=== PATIENT | male | born 1945 | race African-American/Black ===

== ENCOUNTER 2019-10-27 | Inpatient (IN) | payer OTHER ==
--- NOTE | 2019-10-27 01:10 | PDOC ---
Attending Attestation - Resident Resident Name: Karel Patel - ED Attending Attestation I have performed the following: I have examined & evaluated the patient, The case was reviewed & discussed with the resident, I agree w/resident's findings & plan - HPI HPI: 10/27/19 04:42 see resident hpi - Physicial Exam PE: 10/27/19 04:42 see resident exam - Medical Decision Making 10/27/19 04:43 74-year-old male status post cystoscopy currently on Eliquis with gross hematuria We will admit to medical service for observation Patient is passing urine at this time, a Roche catheter would pose greater potential harm than benefit due to anticoagulation Patient's urologist contacted though he is not on staff at this facility
--- NOTE | 2019-10-27 01:50 | PDOC ---
History of Present Illness - General Chief Complaint: Hematuria Stated Complaint: BLEEDING Time Seen by Provider: 10/27/19 01:09 History Source: Patient Exam Limitations: No Limitations - History of Present Illness Initial Comments: 10/27/19 04:12 74 yo M with a hx of afib (on eliquis), DM, BPH, HLD, polymyositis, and HTN presents to the emergency department for the evaluation of his hematuria that has been ongoing since yesterday afternoon s/p cystoscopy. Per the patient, he had a cystoscopy performed by Dr. Herrera. Per the patient, he has had 6+ urination episodes with marcelino blood. Per the patient, he has had difficulty urinating with interruptions of urine stream. Denies pain with these episodes, but describes a pressure in the suprapubic region. Denies the following: fever, chills, nausea, vomiting, lightheadedness, chest pain, SOB, ears/nose/throat pain, and leg pain/swelling. Allergies: NKDA Past History - Past Medical History Allergies/Adverse Reactions: Allergies Allergy/AdvReac Type Severity Reaction Status Date / Time No Known Allergies Allergy Verified 10/27/19 01:09 Home Medications: Ambulatory Orders Apixaban [Eliquis] 5 mg PO DAILY 10/27/19 Aspirin [Ecotrin] 81 mg PO DAILY 10/27/19 Atorvastatin Ca [Lipitor] 10 mg PO HS 10/27/19 B12/Iodin/Mag/Zinc/Annette/Tlst506 [Adrenoid Capsule] 1 each PO DAILY 10/27/19 Folic Acid/Vit B Complex and C [Dialyvite 800 Chewable Wafer] 800 mcg PO DAILY 10/27/19 Losartan Potassium 100 mg PO DAILY 10/27/19 Methotrexate Sodium/Pf [Methotrexate 1 gm Vial] 1 gm IJ WEEKLY 10/27/19 Multivit-Min/FA/Lycopen/Lutein [Centrum Silver Tablet] 1 each PO DAILY 10/27/19 Triamterene/Hydrochlorothiazid [Triamterene-Hctz 75-50 mg Tab] 1 each PO DAILY 10/27/19 metFORMIN HCL [Metformin HCl ER] 750 mg PO DAILY 10/27/19 - Psycho Social/Smoking Cessation Hx Smoking History: Never smoked Hx Alcohol Use: No Drug/Substance Use Hx: No Review of Systems - Review of Systems Able to Perform ROS?: Yes Is the patient limited Fijian proficient: No Constitutional: No: Chills, Diaphoresis, Fever, Weakness HEENTM: No: Eye Pain, Ear Pain, Nose Pain, Throat Pain, Mouth Pain Respiratory: No: Cough, Shortness of Breath, Hemoptysis Cardiac (ROS): No: Chest Pain, Lightheadedness, Palpitations, Syncope, Chest Tightness ABD/GI: No: Constipated, Diarrhea, Nausea, Rectal Bleeding, Vomiting, Tarry Stools : Yes: Hematuria. No: Burning, Dysuria, Discharge, Incontinence Musculoskeletal: No: Back Pain, Joint Pain, Neck Pain Integumentary: No: Bruising, Erythema, Rash Neurological: No: Headache Psychiatric: No: Change in Appetite Endocrine: No: Unexplained Weight Loss Hematologic/Lymphatic: No: Anemia *Physical Exam - Vital Signs Last Vital Signs Temp Pulse Resp BP Pulse Ox 98.3 F 67 16 116/72 100 10/27/19 00:00 10/27/19 00:00 10/27/19 00:00 10/27/19 00:00 10/27/19 00:00 - Physical Exam General Appearance: Yes: Nourished, Appropriately Dressed. No: Apparent Distress, Intoxicated HEENT: positive: EOMI, DONAL, Normal Voice, Symmetrical, Pharynx Normal, Hearing Grossly Normal. negative: Pale Conjunctivae, Scleral Icterus (R), Scleral Icterus (L), Muffled/Hoarse voice, Pharyngeal Erythema, Tonsillar Exudate, Tonsillar Erythema, Nasal Congestion, Rhinorrhea, Excessive drooling Neck: positive: Trachea midline, Supple. negative: Tender, Lymphadenopathy (R) , Lymphadenopathy (L), Tender lateral, Tender midline Respiratory/Chest: positive: Lungs Clear, Normal Breath Sounds. negative: Chest Tender, Respiratory Distress, Accessory Muscle Use, Rales, Rhonchi, Stridor, Wheezing Cardiovascular: positive: Regular Rhythm, Regular Rate, S1, S2. negative: Systolic Murmur Gastrointestinal/Abdominal: positive: Normal Bowel Sounds, Tender (suprapubic discomfort on palpation), Flat, Soft. negative: Distended, Guarding, Rebound Lymphatic: negative: Adenopathy Musculoskeletal: positive: Normal Inspection. negative: CVA Tenderness, Vertebral Tenderness Extremity: positive: Normal Capillary Refill, Normal Inspection, Normal Range of Motion. negative: Tender Integumentary: positive: Normal Color, Dry, Warm Neurologic: positive: superintendent local II-XII NML intact, Fully Oriented, Alert, Normal Mood/ Affect, Normal Response, Motor Strength 01/31 ED Treatment Course - LABORATORY CBC & Chemistry Diagram: 10/27/19 14:07 10/27/19 08:33 Medical Decision Making - Medical Decision Making 10/27/19 18:23 74 yo M with a hx of afib (on eliquis), DM, BPH, HLD, polymyositis, and HTN presents to the emergency department for the evaluation of his hematuria that has been ongoing since yesterday afternoon s/p cystoscopy. Initial vitals: Initial Vital Signs Temp Pulse Resp BP Pulse Ox 98.3 F 67 16 116/72 100 10/27/19 00:00 10/27/19 00:00 10/27/19 00:00 10/27/19 00:00 10/27/19 00:00 Work up: Patient received a cystoscopy from his urologist at 9am. The patient withheld his eliquis the night prior to the procedure, but took his usual dose shortly after the procedure. The patient presented images on his phone of the episodes he has had. By my evaluation, it appears to be blood without a sero-sanguineous component. The patient will need to have hemoglobin evaluated. Per the patient, he is still urinating, however with reduced stream strength. Laboratory Tests 10/27/19 10/27/19 10/27/19 02:50 02:50 02:50 WBC 7.5 RBC 3.35 L Hgb 11.5 L Hct 33.3 L MCV 99.2 H MCH 34.4 H MCHC 34.7 RDW 14.6 Plt Count 128 L MPV 11.0 Absolute Neuts (auto) 6.1 Neutrophils % 81.2 Lymphocytes % 14.8 Monocytes % 3.4 L Eosinophils % 0.1 Basophils % 0.5 Nucleated RBC % 0 PT with INR 16.60 H INR 1.40 H Sodium 139 Potassium 5.0 Chloride 106 Carbon Dioxide 28 Anion Gap 6 L BUN 25.7 H Creatinine 1.3 Est GFR (CKD-EPI)AfAm 63.18 Est GFR (CKD-EPI)NonAf 54.51 Random Glucose 150 H Calcium 10.5 H Total Bilirubin 1.4 H AST 37 ALT 30 Alkaline Phosphatase 91 Total Protein 6.5 Albumin 3.8 Blood Type Antibody Screen 10/27/19 02:50 WBC RBC Hgb Hct MCV MCH MCHC RDW Plt Count MPV Absolute Neuts (auto) Neutrophils % Lymphocytes % Monocytes % Eosinophils % Basophils % Nucleated RBC % PT with INR INR Sodium Potassium Chloride Carbon Dioxide Anion Gap BUN Creatinine Est GFR (CKD-EPI)AfAm Est GFR (CKD-EPI)NonAf Random Glucose Calcium Total Bilirubin AST ALT Alkaline Phosphatase Total Protein Albumin Blood Type O POSITIVE Antibody Screen Negative baseline hemoglobin per the patient is 12.5. 1 point drop from his baseline which was recently drawn. Patient to be admitted for significant hematuria with laboratory changes and continues bleeding without sero-sanguinous development. Patient's urologist was called and i spoke to the sectional belt mold assembler urologist for his service. recommended withholding anti-coagulation and at least observing for 24 hours to watch for clear urine. Patient was endorsed to hospital team and accepted for admission Dispo: Admit Discharge - Discharge Information Problems reviewed: Yes Clinical Impression/Diagnosis: Hematuria - Follow up/Referral - Patient Discharge Instructions - Post Discharge Activity
[2019-10-27 03:22] LABS: BASO % 0.5 % (0-2.0); EOS % 0.1 % (0-4.5); HEMATOCRIT 33.3 % (35.4-49); HEMOGLOBIN 11.5 GM/dL (11.7-16.9); LYMPH % 14.8 % (8-40); MCH 34.4 pg (25.7-33.7); MCHC 34.7 g/dl (32.0-35.9); MEAN CELL VOLUME 99.2 fl (80-96); MONO % 3.4 % (3.8-10.2); NEUT % 81.2 % (42.8-82.8); PLATELET COUNT 128 K/MM3 (134-434); RBC 3.35 M/mm3 (4.00-5.60); RDW 14.6 % (11.9-15.9); WHITE BLOOD COUNT 7.5 K/mm3 (4.0-10.0)
[2019-10-27 03:39] LABS: INR 1.4 (0.83-1.09); PROTHROMBIN TIME (PATIENT) 16.6 SEC (9.7-13.0)
[2019-10-27 03:58] LABS: ALBUMIN 3.8 g/dl (3.4-5.0); BILIRUBIN,TOTAL 1.4 mg/dL (0.2-1); BLOOD UREA NITROGEN 25.7 mg/dL (7-18); CALCIUM 10.5 mg/dL (8.5-10.1); CREATININE 1.3 mg/dL (0.55-1.3); TOT PROT 6.5 g/dl (6.4-8.2)
[2019-10-27] MEDS ORDERED: CEFTRIAXONE 1,000 MG in DEXTROSE 5%-WATER - 50 ML IVPB ONE (04:30)
[2019-10-27] MEDS ORDERED: CEFTRIAXONE 1 GM/50 ML BAG ONE (04:43)
--- NOTE | 2019-10-27 04:58 | PN ---
Teaching Attending Note Name of Resident: Jas Steele ATTENDING PHYSICIAN STATEMENT I saw and evaluated the patient. I reviewed the resident's note and discussed the case with the resident. I agree with the resident's findings and plan as documented. SUBJECTIVE: 74 yo M with a hx of afib (on eliquis), DM, BPH, HLD, polymyositis, htn presents for evaluation of hematuria that are started on 10/26/2019 in the afternoon after he underwent a cystoscopy. Per the patient he had a cystoscopy performed and subsequently developed multiple episodes of urination with marcelino blood. Reported some hesitancy, urination is painless. First time in this hospital. OBJECTIVE: Last Vital Signs Temp Pulse Resp BP Pulse Ox 98.3 F 67 16 116/72 100 10/27/19 00:00 10/27/19 00:00 10/27/19 00:00 10/27/19 00:00 10/27/19 00:00 GENERAL: Well developed, well nourished. Awake and alert. No acute distress. HEENT: Normocephalic, atraumatic. PERRLA, EOMI. No conjunctival pallor. Sclera are non- icteric. Moist mucous membranes. Oropharynx is clear. NECK: Supple. Full ROM. No JVD. Carotid pulses 2+ and symmetric, without bruits. No thyromegaly. No lymphadenopathy. CARDIOVASCULAR: Regular rate and rhythm. No murmurs, rubs, or gallops. Distal pulses are 2+ and symmetric. PULMONARY: No evidence of respiratory distress. Lungs clear to auscultation bilaterally. No wheezing, rales or rhonchi. ABDOMINAL: Soft. Non-tender. Non-distended. No rebound or guarding. No organomegaly. Normoactive bowel sounds. MUSCULOSKELETAL Normal range of motion at all joints. No bony deformities or tenderness. No CVA tenderness. EXTREMITIES: No cyanosis. No clubbing. No edema. No calf tenderness. SKIN: Warm and dry. Normal capillary refill. No rashes. No jaundice. PSYCHIATRIC: Cooperative. Good eye contact. Appropriate mood and affect. Abnormal Lab Results 10/27/19 10/27/19 10/27/19 02:50 02:50 02:50 RBC 3.35 L Hgb 11.5 L Hct 33.3 L MCV 99.2 H MCH 34.4 H Plt Count 128 L Monocytes % 3.4 L PT with INR 16.60 H INR 1.40 H Anion Gap 6 L BUN 25.7 H Random Glucose 150 H Calcium 10.5 H Total Bilirubin 1.4 H ASSESSMENT AND PLAN: 74-year-old male with hematuria status post cystoscopy. Eliquis might facilitate bleeding. Patient is hemodynamically stable, hemoglobin of 11 g/dL, dropped from baseline of 12 g/dLShould rule out post procedure complications. [facility] Stop Eliquis at this time EKG Urology consult CT of abdomen and pelvis #Thrombocytopenia #Macrocytic anemia Send iron studies, ferritin, vitamin B12, TSH
--- NOTE | 2019-10-27 05:24 | HP ---
CHIEF COMPLAINT: Gross hematuria s/p since yesterday PCP: Dr. Pugh HISTORY OF PRESENT ILLNESS: This is a 74 year old male with PMH of AFib (diagnosed 2017, started on Eliquis 5mg BID), DM, BPH, HLD, HTN, and polymyositis. He presented to the ER with complaints of over 10 episodes of painless gross hematuria with clots since Oct 25 (2 days ago) after undergoing a cystoscopy a few hours before his symptoms began. He endorses associated polyuria, but denies any fevers, chills, diarrhea , nausea, vomiting, melena, easy bruising, SOB, chest pain, or palpitations. He also endorses an unintentional weight loss of approximately 60 lbs over the past 2 years, although he states that no evidence of cancer was found during his cystoscopy. In February 2019, he experienced a few episodes of hematuria, only a few drops noticed in his stream. Around the same time, he developed bruising on his right arm and left thigh. His Eliquis was stopped for a few days as per PCP. His hematuria resolved within a few days, and his Eliquis was restarted. He was referred by his PCP for CT scan a few weeks later, the patient does not remember the findings of the scan. He attributes the 7 month delay between his initial symptoms and scheduling of cystoscopy to the fact that he was unable to find a urologist of his liking. He has never had similar symptoms before, and denies sick contacts, recent illnesses, or recent travel. His DM is well controlled with Metformin 750mg, he takes Tamsulosin intermittently for his BPH, and has weekly injections of Methotrexate for his polymyositis. He underwent a colonoscopy 2 years ago with no abnormalities. He is scheduled for another one in November because he has been cnstipated for the past several months. ER course was notable for: (1) Dr. Herrera contacted: recommended starting on 1g Ceftriaxone (2) H/H 11.5/33.3 (3) T Bili 1.4 Recent Travel: denies PAST MEDICAL HISTORY: As listed in HPI PAST SURGICAL HISTORY: denies Social History: Smoking: quit in the 70s Alcohol: socially, few drinks a month, no binge drinking Drugs: denies Allergies No Known Allergies Allergy (Verified 10/27/19 01:09) HOME MEDICATIONS: Home Medications Medication Instructions Recorded Losartan Potassium 100 mg PO DAILY 10/27/19 REVIEW OF SYSTEMS CONSTITUTIONAL: Absent: fever, chills, diaphoresis, generalized weakness, malaise, loss of appetite, weight change HEENT: Absent: rhinorrhea, nasal congestion, throat pain, throat swelling, difficulty swallowing, mouth swelling, ear pain, eye pain, visual changes CARDIOVASCULAR: Absent: chest pain, syncope, palpitations, irregular heart rate, lightheadedness , peripheral edema RESPIRATORY: Absent: cough, shortness of breath, dyspnea with exertion, orthopnea, wheezing, stridor, hemoptysis GASTROINTESTINAL: Absent: abdominal pain, abdominal distension, nausea, vomiting, diarrhea, constipation, melena, hematochezia GENITOURINARY: Absent: dysuria, frequency, urgency, hesitancy, hematuria, flank pain, genital pain MUSCULOSKELETAL: Absent: myalgia, arthralgia, joint swelling, back pain, neck pain SKIN: Absent: rash, itching, pallor HEMATOLOGIC/IMMUNOLOGIC: Absent: easy bleeding, easy bruising, lymphadenopathy, frequent infections ENDOCRINE: Absent: unexplained weight gain, unexplained weight loss, heat intolerance, cold intolerance NEUROLOGIC: Absent: headache, focal weakness or paresthesias, dizziness, unsteady gait, seizure, mental status changes, bladder or bowel incontinence PSYCHIATRIC: Absent: anxiety, depression, suicidal or homicidal ideation, hallucinations. PHYSICAL EXAMINATION Vital Signs - 24 hr 10/27/19 00:00 Temperature 98.3 F Pulse Rate 67 Respiratory 16 Rate Blood Pressure 116/72 O2 Sat by Pulse 100 Oximetry (%) GENERAL: AOx3 HEAD: Normal with no signs of trauma. EYES: Pupils equal, round and reactive to light, extraocular movements intact, sclera anicteric, conjunctiva clear. No lid lag. EARS, NOSE, THROAT: Ears normal, nares patent, oropharynx clear without exudates. Moist mucous membranes. NECK: Normal range of motion, supple without lymphadenopathy, JVD, or masses. LUNGS: Breath sounds equal, clear to auscultation bilaterally. No wheezes, and no crackles. No accessory muscle use. HEART: Regular rate and rhythm, normal S1 and S2 without murmur, rub or gallop. ABDOMEN: Soft, mild suprapubic tenderness, no active bleeding or lesions at penile meatus MUSCULOSKELETAL: Normal range of motion at all joints. No bony deformities or tenderness. No CVA tenderness. UPPER EXTREMITIES: 2+ pulses, warm, well-perfused. No cyanosis. No clubbing. No peripheral edema. LOWER EXTREMITIES: 2+ pulses, warm, well-perfused. No calf tenderness. No peripheral edema. NEUROLOGICAL: Cranial nerves II-XII intact. Normal speech PSYCHIATRIC: Cooperative. Good eye contact. Appropriate mood and affect. SKIN: Warm, dry, normal turgor, no rashes or lesions noted, normal capillary refill. Laboratory Results - last 24 hr 10/27/19 10/27/19 10/27/19 02:50 02:50 02:50 WBC 7.5 RBC 3.35 L Hgb 11.5 L Hct 33.3 L MCV 99.2 H MCH 34.4 H MCHC 34.7 RDW 14.6 Plt Count 128 L MPV 11.0 Absolute Neuts (auto) 6.1 Neutrophils % 81.2 Lymphocytes % 14.8 Monocytes % 3.4 L Eosinophils % 0.1 Basophils % 0.5 Nucleated RBC % 0 PT with INR 16.60 H INR 1.40 H Sodium 139 Potassium 5.0 Chloride 106 Carbon Dioxide 28 Anion Gap 6 L BUN 25.7 H Creatinine 1.3 Est GFR (CKD-EPI)AfAm 63.18 Est GFR (CKD-EPI)NonAf 54.51 Random Glucose 150 H Calcium 10.5 H Total Bilirubin 1.4 H AST 37 ALT 30 Alkaline Phosphatase 91 Total Protein 6.5 Albumin 3.8 Blood Type Antibody Screen 10/27/19 02:50 WBC RBC Hgb Hct MCV MCH MCHC RDW Plt Count MPV Absolute Neuts (auto) Neutrophils % Lymphocytes % Monocytes % Eosinophils % Basophils % Nucleated RBC % PT with INR INR Sodium Potassium Chloride Carbon Dioxide Anion Gap BUN Creatinine Est GFR (CKD-EPI)AfAm Est GFR (CKD-EPI)NonAf Random Glucose Calcium Total Bilirubin AST ALT Alkaline Phosphatase Total Protein Albumin Blood Type O POSITIVE Antibody Screen Negative ASSESSMENT/PLAN: 74 year old male with PMH of AFib (diagnosed 2018, started on Eliquis 5mg BID), DM, BPH, HLD, HTN, and polymyositis. He presented to the ER with complaints of over 10 episodes of painless gross hematuria with clots since Oct 25 (2 days ago ) after undergoing a cystoscopy a few hours before his symptoms began. #Hematuria - May be trauma, patient has pictures of the urine on his phone, appears to be a profuse amount of dark blood - Ceftriaxone 1g started as per Dr. Herrera (Urologist who performed cystoscopy) - CT AP wo contrast ordered to check for trauma - Holding Eliquis - Urology (Dr. 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 - Eliquis stopped due to active bleeding #Hx of HTN - Holding Losartan and Triamterene-Hctz to avoid hypotension in setting of possible hypovolemia 2/2 blood loss #Hx of DM - BGM, ISS started #Hx of BPH - Currently asymptomatic - May start Tamsuosin 0.4mg if symptoms occurs #FEN - LR @ 100 started - NPO for now (in case procedure required) #DVT - SCDs, holding chemical AC Visit type - Emergency Visit Emergency Visit: Yes ED Registration Date: 10/27/19 Care time: The patient presented to the Emergency Department on the above date and was hospitalized for further evaluation of their emergent condition. - New Patient This patient is new to me today: Yes Date on this admission: 10/28/19 - Critical Care Critical Care patient: No ATTENDING PHYSICIAN STATEMENT I saw and evaluated the patient. I reviewed the resident's note and discussed the case with the resident. I agree with the resident's findings and plan as documented. SUBJECTIVE: OBJECTIVE: ASSESSMENT AND PLAN:
[2019-10-27] MEDS ORDERED: LACTATED RINGERS SOLUTION 1,000 ML/1,000 ML INFUS.BAG IV SCH ×2 (06:15→18:13)
--- NOTE | 2019-10-27 08:08 | PN ---
Teaching Attending Note Name of Resident: Blanca Jacob ATTENDING PHYSICIAN STATEMENT I saw and evaluated the patient. I reviewed the resident's note and discussed the case with the resident. I agree with the resident's findings and plan as documented. SUBJECTIVE: Hematuria OBJECTIVE: Vital Signs Temperature 98.3 F 10/27/19 00:00 Pulse Rate 67 10/27/19 00:00 Respiratory Rate 16 10/27/19 00:00 Blood Pressure 116/72 10/27/19 00:00 O2 Sat by Pulse Oximetry (%) 100 10/27/19 00:00 General: Elderly man, comfortable, not in distress HEENT; mucous membranes moist, no anemia, no jaundice, PERRLA, no nystagmus Neck: No JVD, supple, no bruit, thyroid palpably normal, normal carotid pulsations. Chest: Nontender, clear to auscultation bilaterally CVS: S1-S2 regular no murmur/gallop/rub Abdomen: Nondistended, soft, bowel sounds present. Extremities: No edema., No cough tenderness, pulses present FLIGHT ATTENDANT: AO X3 , no gross motor sensory deficit CBC, BMP 10/27/19 02:50 10/27/19 02:50 Active Medications Lactated Ringer's (Lactated Ringers Solution) 1,000 ml in 1,000 mls @ 100 mls/ hr IV ASDIR MAYA Last Admin: 10/27/19 07:14 Dose: 100 mls/hr Insulin Aspart (Novolog Vial) 1 units SQ [facility]; Protocol ASSESSMENT AND PLAN:74 years old man lives in the [place] follow-up in [place] history of hypertension, A. fib on Eliquis, type 2 diabetes mellitus, hypertension, BPH as per patient yesterday around 8 AM he underwent cystoscopy as an outpatient resumed his apixaban [patient was not advised to stop s apixaban for the procedure] presents for evaluation of hematuria that are started on 10/26/2019 in the afternoon after he underwent a cystoscopy. Late evening patient developed marcelino hematuria with some frequency of micturition, he called his urologist and came to ED for evaluation on arrival to ED patient was having marcelino hematuria admitted for further management, patient still complaint of hematuria denies any dizziness chest pain or urinary obstruction. Problem List - Problems (1) Hematuria Assessment/Plan: Post cystoscopy hematuria, continue IV hydration, serial H&H, follow-up CT abdomen, serial bladder scan to rule out bladder outlet obstruction, urology consult, patient urologist by the resident. Problems reviewed: Yes Code(s): R31.9 - HEMATURIA, UNSPECIFIED (2) Type 2 diabetes mellitus Assessment/Plan: Diabetic diet, continue Accu-Chek follow-up hemoglobin A1c Problems reviewed: Yes Code(s): E11.9 - TYPE 2 DIABETES MELLITUS WITHOUT COMPLICATIONS (3) Atrial fibrillation Assessment/Plan: Hold anticoagulation, at present rate controlled Problems reviewed: Yes Code(s): I48.91 - UNSPECIFIED ATRIAL FIBRILLATION (4) HTN (hypertension) Assessment/Plan: At present blood pressure is well controlled Problems reviewed: Yes Code(s): I10 - ESSENTIAL (PRIMARY) HYPERTENSION
[2019-10-27 08:55] LABS: HEMATOCRIT 33.3 % (35.4-49); HEMOGLOBIN 11.5 GM/dL (11.7-16.9); MCH 34.1 pg (25.7-33.7); MCHC 34.6 g/dl (32.0-35.9); MEAN CELL VOLUME 98.4 fl (80-96); MEAN PLT VOLUME 10.1 fl (7.5-11.1); PLATELET COUNT 125 K/MM3 (134-434); RBC 3.39 M/mm3 (4.00-5.60); RDW 14.6 % (11.9-15.9); WHITE BLOOD COUNT 8.2 K/mm3 (4.0-10.0)
[2019-10-27 09:42] LABS: BLOOD UREA NITROGEN 26.5 mg/dL (7-18); CALCIUM 10.3 mg/dL (8.5-10.1); CREATININE 1.2 mg/dL (0.55-1.3); POTASSIUM 3.5 mmol/L (3.5-5.1)
[2019-10-27 09:43] LABS: BILIRUBIN,TOTAL 1.6 mg/dL (0.2-1); TOT PROT 6.5 g/dl (6.4-8.2)
[2019-10-27] MEDS ORDERED: PATIENT'S OWN MEDICATION (NON-FORMULARY) (Losartan Potassium [Losartan Potassium] 100 MG) PO SCH (10:00)
[2019-10-27] MEDS ORDERED: PATIENT'S OWN MEDICATION (NON-FORMULARY) (Triamterene/Hydrochlorothiazid [Triamterene-Hctz PO SCH (10:00)
[2019-10-27] MEDS: INSULIN (NOVOLOG) ASPART 100 UNITS/ML 10ML VIAL SQ SCH ×4 (10:21→21:50)
--- NOTE | 2019-10-27 11:00 | EKG ---
Test Reason : Blood Pressure : / mmHG Vent. Rate : 060 BPM Atrial Rate : 060 BPM P-R Int : 158 ms QRS Dur : 116 ms QT Int : 440 ms P-R-T Axes : 052 -30 039 degrees QTc Int : 440 ms NORMAL SINUS RHYTHM LEFT AXIS DEVIATION ABNORMAL ECG NO PREVIOUS ECGS AVAILABLE Confirmed by Adam Oswald MD ([id number]) on 10/27/2019 11:00:15 AM Referred By: Confirmed By:Adam Oswald MD
[2019-10-27 14:34] LABS: BASO % 0.4 % (0-2.0); EOS % 0.1 % (0-4.5); HEMATOCRIT 30.9 % (35.4-49); HEMOGLOBIN 10.7 GM/dL (11.7-16.9); LYMPH % 19.7 % (8-40); MCHC 34.6 g/dl (32.0-35.9); MEAN CELL VOLUME 98.5 fl (80-96); MEAN PLT VOLUME 10.4 fl (7.5-11.1); MONO % 4.7 % (3.8-10.2); NEUT % 75.1 % (42.8-82.8); PLATELET COUNT 123 K/MM3 (134-434); RBC 3.14 M/mm3 (4.00-5.60); RDW 14.7 % (11.9-15.9); WHITE BLOOD COUNT 8.1 K/mm3 (4.0-10.0)
[2019-10-27 15:13] VITALS: BMI 26.9
--- NOTE | 2019-10-27 15:19 | CONS ---
DATE OF CONSULTATION: DATE OF DICTATION: 10/27/2019 HISTORY OF PRESENT ILLNESS: Patient is a 74-year-old male, admitted via the emergency room, with gross total-painless hematuria. This has been going on for the past 36 hours, since he underwent a cystoscopy performed by a Dr. Herrera in [facility]. Patient does have history of diabetes, high blood pressure, prostatism, dyslipidemia, polymyositis, and hypertension. He is on Eliquis. The patient also has frequency, urgency with interruption of stream and feelings of incomplete bladder emptying. ALLERGIES: He denies any allergies. HABITS: He denies ethanol or tobacco use. In the emergency room, his temperature was 98.3, blood pressure 116/72. His white count is 7.5, hemoglobin and hematocrit is 11.5 over 33.3, platelets were 128, BUN and creatinine were 25.7 over 1.3. The patient underwent a CT of his abdomen and pelvis and this revealed a 1-cm left basilar nodule. CT followup is recommended. There was no evidence of obstructive uropathy. There was hyperdense, echogenic material within the urinary bladder, most likely clots, but neoplasm must be ruled out. There is a moderately enlarged prostate. There was also left adrenal nodularity, for which an MRI followup is recommended. The gallbladder is clear and there is no evidence of diverticulitis or appendicitis. The patient's abdomen is soft. Genitalia are atraumatic. His prostate is 3+, firm, nontender. Plan is patient should stop his anticoagulation and undergo a cystoscopy to rule out bladder tumor. This will be explained to patient. Khushbu [id number]
[2019-10-27] MEDS ORDERED: SODIUM CHLORIDE 1,000 ML IV STA (17:24)
--- NOTE | 2019-10-27 18:13 | PN ---
Physical Exam: SUBJECTIVE: Patient seen and examined. Says he is still having gross hematuria but possibly a little less than yesterday. OBJECTIVE: Vital Signs Period Temp Pulse Resp BP Sys/[place] Pulse Ox Last 24 Hr 97.7 F-98.7 F 65-82 16-20 101-132/59-76 98-100 General: a/o x 3, in NAD HEENT; mucous membranes moist, no anemia, no jaundice, PERRLA, no nystagmus Neck: No JVD, supple, no bruit, thyroid palpably normal, normal carotid pulsations. Chest: CTA b/l CVS: rrr, no MGR, s1 s2 Abdomen: Nondistended, soft, +BS Extremities: No edema. 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 grossly intact Laboratory Results - last 24 hr 10/27/19 10/27/19 10/27/19 02:50 02:50 02:50 WBC 7.5 RBC 3.35 L Hgb 11.5 L Hct 33.3 L MCV 99.2 H MCH 34.4 H MCHC 34.7 RDW 14.6 Plt Count 128 L MPV 11.0 Absolute Neuts (auto) 6.1 Neutrophils % 81.2 Lymphocytes % 14.8 Monocytes % 3.4 L Eosinophils % 0.1 Basophils % 0.5 Nucleated RBC % 0 PT with INR 16.60 H INR 1.40 H Sodium 139 Potassium 5.0 Chloride 106 Carbon Dioxide 28 Anion Gap 6 L BUN 25.7 H Creatinine 1.3 Est GFR (CKD-EPI)AfAm 63.18 Est GFR (CKD-EPI)NonAf 54.51 POC Glucometer Random Glucose 150 H Calcium 10.5 H Iron TIBC Iron Saturation Unsaturated IBC Total Bilirubin 1.4 H AST 37 ALT 30 Alkaline Phosphatase 91 Total Protein 6.5 Albumin 3.8 Vitamin B12 Blood Type Antibody Screen 10/27/19 10/27/19 10/27/19 02:50 08:33 08:33 WBC 8.2 RBC 3.39 L Hgb 11.5 L Hct 33.3 L MCV 98.4 H MCH 34.1 H MCHC 34.6 RDW 14.6 Plt Count 125 L MPV 10.1 Absolute Neuts (auto) Neutrophils % Lymphocytes % Monocytes % Eosinophils % Basophils % Nucleated RBC % PT with INR INR Sodium 139 Potassium 3.5 Chloride 106 Carbon Dioxide 26 Anion Gap 7 L BUN 26.5 H Creatinine 1.2 Est GFR (CKD-EPI)AfAm 69.60 Est GFR (CKD-EPI)NonAf 60.05 POC Glucometer Random Glucose 123 H Calcium 10.3 H Iron 84 TIBC 293 Iron Saturation 28 Unsaturated IBC 209 Total Bilirubin 1.6 H AST 19 ALT 29 Alkaline Phosphatase 86 Total Protein 6.5 Albumin 4.0 Vitamin B12 858 Blood Type O POSITIVE Antibody Screen Negative 10/27/19 10/27/19 10/27/19 08:39 12:11 14:07 WBC 8.1 RBC 3.14 L Hgb 10.7 L Hct 30.9 L MCV 98.5 H MCH 34.0 H MCHC 34.6 RDW 14.7 Plt Count 123 L MPV 10.4 Absolute Neuts (auto) 6.1 Neutrophils % 75.1 Lymphocytes % 19.7 D Monocytes % 4.7 Eosinophils % 0.1 Basophils % 0.4 Nucleated RBC % 0 PT with INR INR Sodium Potassium Chloride Carbon Dioxide Anion Gap BUN Creatinine Est GFR (CKD-EPI)AfAm Est GFR (CKD-EPI)NonAf POC Glucometer 121 108 Random Glucose Calcium Iron TIBC Iron Saturation Unsaturated IBC Total Bilirubin AST ALT Alkaline Phosphatase Total Protein Albumin Vitamin B12 Blood Type Antibody Screen 10/27/19 16:59 WBC RBC Hgb Hct MCV MCH MCHC RDW Plt Count MPV Absolute Neuts (auto) Neutrophils % Lymphocytes % Monocytes % Eosinophils % Basophils % Nucleated RBC % PT with INR INR Sodium Potassium Chloride Carbon Dioxide Anion Gap BUN Creatinine Est GFR (CKD-EPI)AfAm Est GFR (CKD-EPI)NonAf POC Glucometer 101 Random Glucose Calcium Iron TIBC Iron Saturation Unsaturated IBC Total Bilirubin AST ALT Alkaline Phosphatase Total Protein Albumin Vitamin B12 Blood Type Antibody Screen Active Medications Generic Name Dose Route Start Last Admin Trade Name Freq PRN Reason Stop Dose Admin Lactated Ringer's 1,000 ml in 1,000 mls @ 100 mls/hr 10/27/19 06:15 10/27/19 07:14 Lactated Ringers Solution IV 100 mls/hr ASDIR MAYA Administration Sodium Chloride 1,000 mls @ 1,000 mls/hr 10/27/19 17:24 10/27/19 17:45 Normal Saline - IV 10/27/19 18:23 1,000 mls/hr ASDIR STA Administration Insulin Aspart 1 units 10/27/19 07:00 10/27/19 17:27 Novolog Vial SQ Not Given ACHS MAYA Protocol ASSESSMENT/PLAN: #Hematuria -Post cystoscopy hematuria, called patients urologist, says patient did not follow directions pre-cystoscope and took eliquis. -continue IV hydration -serial H&H -follow-up CT abdomen -bladder scan to rule out obstruction -urology consult #Hx of AFib -hold eliquis -Rate control held. patient now hypotensive #Hx of HTN - holding antihypertensives due to hypotension #Hx of DM - BGM, ISS started #Hx of BPH - stable #FEN - LR @ 100 started - diabetic diet #DVT - SCDs, holding chemical AC Visit type - Emergency Visit Emergency Visit: Yes ED Registration Date: 10/27/19 Care time: The patient presented to the Emergency Department on the above date and was hospitalized for further evaluation of their emergent condition. - New Patient This patient is new to me today: Yes Date on this admission: 10/27/19 - Critical Care Critical Care patient: No ATTENDING PHYSICIAN STATEMENT I saw and evaluated the patient. I reviewed the resident's note and discussed the case with the resident. I agree with the resident's findings and plan as documented. SUBJECTIVE: OBJECTIVE: ASSESSMENT AND PLAN:
[2019-10-27 20:07] LABS: BASO % 0.7 % (0-2.0); EOS % 0.8 % (0-4.5); HEMATOCRIT 31.1 % (35.4-49); HEMOGLOBIN 10.8 GM/dL (11.7-16.9); LYMPH % 24.6 % (8-40); MCH 34.3 pg (25.7-33.7); MCHC 34.6 g/dl (32.0-35.9); MEAN CELL VOLUME 99.2 fl (80-96); MEAN PLT VOLUME 10.9 fl (7.5-11.1); MONO % 8.2 % (3.8-10.2); NEUT % 65.7 % (42.8-82.8); PLATELET COUNT 123 K/MM3 (134-434); RBC 3.14 M/mm3 (4.00-5.60); RDW 14.5 % (11.9-15.9); WHITE BLOOD COUNT 9.1 K/mm3 (4.0-10.0)
[2019-10-27 20:22] LABS: PH,URINE 6.5 (5.0-8.0); URINE APPEARANCE Cloudy; URINE BILIRUBIN 3+ (NEGATIVE); URINE COLOR Red; URINE GLUCOSE (UA) Negative (NEGATIVE); URINE KETONE 1+ (NEGATIVE); URINE LEUK ESTERASE 3+ (NEGATIVE); URINE NITRITE Positive (NEGATIVE); URINE PROTEIN 3+ (NEGATIVE)
[2019-10-27 20:23] LABS: URINE RBC TNTC /hpf (0-4)
[2019-10-27 20:24] LABS: URINE WBC 15-20 /hpf (0-5)
--- NOTE | 2019-10-27 20:44 | PN ---
Progress Note (short form) - Note Progress Note: Paged by RN that pt's hematuria worsening. Pt endorses difficulty urinating as well. Irrigated patient's bladder using a [address]. Dark red urine evacuated from bladder. CBI started, working well. Repeat CBC for 10 pm this evening. If count below 7.0, will transfuse. Pt NPO for possible cystoscopy in am. BP 94/56 HR 65 RR 20 O2 Sat 98% Increased fluids to 100cc per hour. Will continue to follow.
[2019-10-27] MEDS: LACTATED RINGERS SOLUTION 1,000 ML/1,000 ML INFUS.BAG IV SCH (21:28)
[2019-10-27 21:48] LABS: BASO % 0.5 % (0-2.0); EOS % 0.9 % (0-4.5); HEMATOCRIT 26.9 % (35.4-49); HEMOGLOBIN 9.3 GM/dL (11.7-16.9); MCH 34.1 pg (25.7-33.7); MCHC 34.4 g/dl (32.0-35.9); MEAN CELL VOLUME 99.2 fl (80-96); MEAN PLT VOLUME 10.1 fl (7.5-11.1); MONO % 9.1 % (3.8-10.2); NEUT % 65.5 % (42.8-82.8); RBC 2.72 M/mm3 (4.00-5.60); RDW 14.7 % (11.9-15.9); WHITE BLOOD COUNT 7.4 K/mm3 (4.0-10.0)
[2019-10-27 22:47] LABS: PLATELET ESTIMATE DECREASED
[2019-10-27 22:49] LABS: PLATELET COUNT 98 K/MM3 (134-434)
[2019-10-28 00:52] LABS: HEMATOCRIT 26.7 % (35.4-49); HEMOGLOBIN 9.3 GM/dL (11.7-16.9); MCH 34.2 pg (25.7-33.7); MCHC 34.7 g/dl (32.0-35.9); MEAN CELL VOLUME 98.7 fl (80-96); MEAN PLT VOLUME 10.8 fl (7.5-11.1); PLATELET COUNT 98 K/MM3 (134-434); RBC 2.71 M/mm3 (4.00-5.60); RDW 14.9 % (11.9-15.9); WHITE BLOOD COUNT 7.5 K/mm3 (4.0-10.0)
[2019-10-28] MEDS: LACTATED RINGERS SOLUTION 1,000 ML/1,000 ML INFUS.BAG IV SCH ×2 (02:06→23:28)
[2019-10-28] MEDS: INSULIN (NOVOLOG) ASPART 100 UNITS/ML 10ML VIAL SQ SCH ×4 (06:44→22:14)
--- NOTE | 2019-10-28 08:28 | PN ---
Progress Note, Physician Chief Complaint: Last night patient developed hematuria, put on continuous bladder irrigation still blood-tinged urine. History of Present Illness: 74 years old man lives in the [place] follow-up in [place] history of hypertension, A. fib on Eliquis, type 2 diabetes mellitus, hypertension, BPH as per patient yesterday around 8 AM he underwent cystoscopy as an outpatient resumed his apixaban [patient was not advised to stop s apixaban for the procedure] presents for evaluation of hematuria that are started on 10/26/2019 in the afternoon after he underwent a cystoscopy. Late evening patient developed marcelino hematuria with some frequency of micturition, he called his urologist and came to ED for evaluation on arrival to ED patient was having marcelino hematuria admitted for further management, patient still complaint of hematuria denies any dizziness chest pain or urinary obstruction. - Current Medication List Current Medications: Active Medications Atorvastatin Calcium (Lipitor -) 10 mg PO HS [facility] Lactated Ringer's (Lactated Ringers Solution) 1,000 ml in 1,000 mls @ 100 mls/ hr IV ASDIR [facility] Last Admin: 10/28/19 02:06 Dose: 100 mls/hr Insulin Aspart (Novolog Vial) 1 units SQ [facility]; Protocol Last Admin: 10/28/19 06:44 Dose: Not Given Tamsulosin HCl (Flomax -) 0.4 mg PO DAILY@0830 [facility] - Objective Vital Signs: Vital Signs Temperature 97.6 F 10/28/19 05:00 Pulse Rate 56 L 10/28/19 05:00 Respiratory Rate 20 10/28/19 05:00 Blood Pressure 118/65 10/28/19 05:00 O2 Sat by Pulse Oximetry (%) 98 10/27/19 21:00 General: Elderly man, comfortable, not in distress HEENT; mucous membranes moist, no anemia, no jaundice, PERRLA, no nystagmus Neck: No JVD, supple, no bruit, thyroid palpably normal, normal carotid pulsations. Chest: Nontender, clear to auscultation bilaterally CVS: S1-S2 regular no murmur/gallop/rub Abdomen: Nondistended, soft, bowel sounds present. 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 Evaluated by neurology patient is scheduled for ultrasound , yesterday resident discussed with patient urologist about cystoscopy there was no significant finding. Code(s): R31.9 - HEMATURIA, UNSPECIFIED (2) Type 2 diabetes mellitus Assessment/Plan: Diabetic diet, continue Accu-Chek follow-up hemoglobin A1c Code(s): E11.9 - TYPE 2 DIABETES MELLITUS WITHOUT COMPLICATIONS (3) Atrial fibrillation Assessment/Plan: Hold anticoagulation, at present rate controlled Code(s): I48.91 - UNSPECIFIED ATRIAL FIBRILLATION (4) HTN (hypertension) Assessment/Plan: At present blood pressure is well controlled Code(s): I10 - ESSENTIAL (PRIMARY) HYPERTENSION
[2019-10-28] MEDS: TAMSULOSIN HCL 0.4 MG CAP PO SCH (08:54)
[2019-10-28 09:13] LABS: HEMATOCRIT 25.7 % (35.4-49); MCH 34.3 pg (25.7-33.7); MCHC 35.1 g/dl (32.0-35.9); MEAN CELL VOLUME 97.9 fl (80-96); MEAN PLT VOLUME 10.3 fl (7.5-11.1); PLATELET COUNT 87 K/MM3 (134-434); RBC 2.63 M/mm3 (4.00-5.60); WHITE BLOOD COUNT 6.9 K/mm3 (4.0-10.0)
[2019-10-28 10:14] LABS: ALBUMIN 3.2 g/dl (3.4-5.0); BILIRUBIN,TOTAL 1.3 mg/dL (0.2-1); BLOOD UREA NITROGEN 25.1 mg/dL (7-18); CALCIUM 9.4 mg/dL (8.5-10.1); POTASSIUM 3.8 mmol/L (3.5-5.1); TOT PROT 5.2 g/dl (6.4-8.2)
[2019-10-28] MEDS ORDERED: MIDAZOLAM HCL 2 MG/2 ML SINGLE DOSE VIAL ONE (11:08)
[2019-10-28] MEDS ORDERED: PROPOFOL 20 ML ONE ×2 (11:08)
[2019-10-28] MEDS ORDERED: EPHEDRINE SULFATE/0.9% NACL/PF 50 MG/10 ML SYRINGE NR ONE (11:08)
[2019-10-28] MEDS ORDERED: DEXAMETHASONE SOD PHOSPHATE 4 MG/1 ML VIAL ONE (11:08)
[2019-10-28 18:58] LABS: BASO % 0.9 % (0-2.0); HEMATOCRIT 27.5 % (35.4-49); HEMOGLOBIN 9.5 GM/dL (11.7-16.9); LYMPH % 17.9 % (8-40); MCH 34.3 pg (25.7-33.7); MCHC 34.3 g/dl (32.0-35.9); MEAN CELL VOLUME 99.9 fl (80-96); MEAN PLT VOLUME 10.4 fl (7.5-11.1); MONO % 8.3 % (3.8-10.2); NEUT % 71.9 % (42.8-82.8); PLATELET COUNT 103 K/MM3 (134-434); RBC 2.75 M/mm3 (4.00-5.60); RDW 15.1 % (11.9-15.9); WHITE BLOOD COUNT 8.5 K/mm3 (4.0-10.0)
[2019-10-28] MEDS ORDERED: ATORVASTATIN CA 10 MG TABLET (FP) PO SCH (22:00)
[2019-10-29] MEDS: INSULIN (NOVOLOG) ASPART 100 UNITS/ML 10ML VIAL SQ SCH ×3 (06:02→17:42)
--- NOTE | 2019-10-29 08:08 | PN ---
Progress Note, Physician Chief Complaint: Last night patient developed hematuria, put on continuous bladder irrigation still blood-tinged urine. History of Present Illness: 74 years old man lives in the [place] follow-up in [place] history of hypertension, A. fib on Eliquis, type 2 diabetes mellitus, hypertension, BPH as per patient yesterday around 8 AM he underwent cystoscopy as an outpatient resumed his apixaban [patient was not advised to stop s apixaban for the procedure] presents for evaluation of hematuria that are started on 10/26/2019 in the afternoon after he underwent cystoscopy. - Current Medication List Current Medications: Active Medications Atorvastatin Calcium (Lipitor -) 10 mg PO HS [facility] Last Admin: 10/28/19 22:18 Dose: 10 mg Lactated Ringer's (Lactated Ringers Solution) 1,000 ml in 1,000 mls @ 100 mls/ hr IV ASDIR [facility] Last Admin: 10/28/19 23:28 Dose: 100 mls/hr Insulin Aspart (Novolog Vial) [address] [facility]; Protocol Last Admin: 10/29/19 06:02 Dose: Not Given Tamsulosin HCl (Flomax -) 0.4 mg PO DAILY@0830 [facility] Last Admin: 10/28/19 08:54 Dose: 0.4 mg - Objective Vital Signs: Vital Signs Temperature 98 F 10/29/19 06:00 Pulse Rate 57 L 10/29/19 06:00 Respiratory Rate 20 10/29/19 06:00 Blood Pressure 112/55 L 10/29/19 06:00 O2 Sat by Pulse Oximetry (%) 98 10/28/19 21:00 General: Elderly man, comfortable, not in distress HEENT; mucous membranes moist, no anemia, no jaundice, PERRLA, no nystagmus Neck: No JVD, supple, no bruit, thyroid palpably normal, normal carotid pulsations. Chest: Nontender, clear to auscultation bilaterally/ CVS: S1-S2 irregular no murmur/gallop/rub Abdomen: Nondistended, soft, bowel sounds present. 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 Evaluated by neurology patient is scheduled for ultrasound , yesterday resident discussed with patient urologist about cystoscopy there was no significant finding. Code(s): R31.9 - HEMATURIA, UNSPECIFIED (2) Type 2 diabetes mellitus Assessment/Plan: Diabetic diet, continue Accu-Chek follow-up hemoglobin A1c Code(s): E11.9 - TYPE 2 DIABETES MELLITUS WITHOUT COMPLICATIONS (3) Atrial fibrillation Assessment/Plan: Hold anticoagulation, at present rate controlled Code(s): I48.91 - UNSPECIFIED ATRIAL FIBRILLATION (4) HTN (hypertension) Assessment/Plan: At present blood pressure is well controlled Code(s): I10 - ESSENTIAL (PRIMARY) HYPERTENSION
[2019-10-29 09:15] LABS: BASO % 0.9 % (0-2.0); HEMATOCRIT 26.6 % (35.4-49); HEMOGLOBIN 9.3 GM/dL (11.7-16.9); LYMPH % 19.3 % (8-40); MCH 34.6 pg (25.7-33.7); MONO % 7.4 % (3.8-10.2); NEUT % 71.4 % (42.8-82.8); PLATELET COUNT 101 K/MM3 (134-434); RBC 2.69 M/mm3 (4.00-5.60); WHITE BLOOD COUNT 7.3 K/mm3 (4.0-10.0)
--- NOTE | 2019-10-29 09:30 | CONSULT ---
Consult Consult Specialty:: Urology Reason for Consultation:: Gross hematuria - History of Present Illness Chief Complaint: 74 Y/O Male patih history of Gross hematuria after Cystoscopy in [facility], mayfield catheter was inserted and CBI continued until urine become clear. no pain. O/E soft lax abd no palpable bladder or mass, Genitalia WNL. 3 w mayfield catheter inplace and drain clear yellow urine. Pelvic U/S large prostate no bladder mass. - Alcohol/Substance Use Hx Alcohol Use: No - Smoking History Smoking history: Never smoked Home Medications - Allergies Allergies/Adverse Reactions: Allergies Allergy/AdvReac Type Severity Reaction Status Date / Time No Known Allergies Allergy Verified 10/27/19 01:09 - Home Medications Home Medications: Ambulatory Orders Apixaban [Eliquis] 5 mg PO DAILY 10/27/19 Aspirin [Ecotrin] 81 mg PO DAILY 10/27/19 Atorvastatin Ca [Lipitor] 10 mg PO HS 10/27/19 B12/Iodin/Mag/Zinc/Annette/[id number] [Adrenoid Capsule] 1 each PO DAILY 10/27/19 Diltiazem Cd [Cardizem Cd -] 120 mg PO DAILY 10/27/19 Folic Acid/Vit B Complex and C [Dialyvite 800 Chewable Wafer] 800 mcg PO DAILY 10/27/19 Losartan Potassium 100 mg PO DAILY 10/27/19 Methotrexate Sodium/Pf [Methotrexate 1 gm Vial] 1 gm IJ WEEKLY 10/27/19 Multivit-Min/FA/Lycopen/Lutein [Centrum Silver Tablet] 1 each PO DAILY 10/27/19 Tamsulosin HCl 0.4 mg PO 10/27/19 Triamterene/Hydrochlorothiazid [Triamterene-Hctz 75-50 mg Tab] 1 each PO DAILY 10/27/19 metFORMIN HCL [Metformin HCl ER] 750 mg PO DAILY 10/27/19 Physical Exam Vital Signs: Vital Signs Temperature 98 F 10/29/19 06:00 Pulse Rate 57 L 10/29/19 06:00 Respiratory Rate 20 10/29/19 06:00 Blood Pressure 112/55 L 10/29/19 06:00 O2 Sat by Pulse Oximetry (%) 98 10/28/19 21:00 Labs: CBC, BMP 10/29/19 07:43 Assessment/Plan BPH Hx of Gross hematuria Plan: D/C CBI and watch the urine if it is clear then D/C catheter and will see the patient as outpatient in 2 weeks to repeat the cystoscopy. Flomax 0.4 mg Keflex 500 mg TID
[2019-10-29 09:41] LABS: BLOOD UREA NITROGEN 16.8 mg/dL (7-18); CALCIUM 9.6 mg/dL (8.5-10.1); CREATININE 0.9 mg/dL (0.55-1.3); POTASSIUM 3.6 mmol/L (3.5-5.1)
[2019-10-29] MEDS: TAMSULOSIN HCL 0.4 MG CAP PO SCH (10:14)
[2019-10-29] MEDS ORDERED: CEPHALEXIN MONOHYDRATE 500 MG CAPSULE (UD) PO SCH (12:15)
--- NOTE | 2019-10-29 12:19 | DS ---
Physical Examination Vital Signs: Vital Signs Temperature 98.6 F 10/29/19 10:17 Pulse Rate 68 10/29/19 10:17 Respiratory Rate 20 10/29/19 10:17 Blood Pressure 137/70 10/29/19 10:17 O2 Sat by Pulse Oximetry (%) 98 10/28/19 21:00 General: Elderly man, comfortable, not in distress HEENT; mucous membranes moist, no anemia, no jaundice, PERRLA, no nystagmus Neck: No JVD, supple, no bruit, thyroid palpably normal, normal carotid pulsations. Chest: Nontender, clear to auscultation bilaterally CVS: S1-S2 regular no murmur/gallop/rub Abdomen: Nondistended, soft, bowel sounds present. 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 fib on Eliquis, type 2 diabetes mellitus, hypertension, BPH as per patient yesterday around 8 AM he underwent cystoscopy as an outpatient resumed his apixaban [patient was not advised to stop s apixaban for the procedure] presents for evaluation of hematuria that are started on 10/26/2019 in the afternoon after he underwent a cystoscopy. Late evening patient developed marcelino hematuria with some frequency of micturition, he called his urologist and came to ED for evaluation on arrival to ED patient was having marcelino hematuria admitted for further management, Condition: Stable - Instructions Diet, Activity, Other Instructions: Low salt Diabetic Diet Resume apaxiban after discussing with your urologist once bleeding is stopped for 48 hrs Referrals: ON STAFF,NOT [Primary Care Provider] - Disposition: HOME - Home Medications Comprehensive Discharge Medication List: Ambulatory Orders Apixaban [Eliquis] 5 mg PO DAILY 10/27/19 Atorvastatin Ca [Lipitor] 10 mg PO HS 10/27/19 B12/Iodin/Mag/Zinc/Annette/[id number] [Adrenoid Capsule] 1 each PO DAILY 10/27/19 Folic Acid/Vit B Complex and C [Dialyvite 800 Chewable Wafer] 800 mcg PO DAILY 10/27/19 Losartan Potassium 100 mg PO DAILY 10/27/19 Methotrexate Sodium/Pf [Methotrexate 1 gm Vial] 1 gm IJ WEEKLY 10/27/19 Multivit-Min/FA/Lycopen/Lutein [Centrum Silver Tablet] 1 each PO DAILY 10/27/19 Tamsulosin HCl 0.4 mg PO 10/27/19 Triamterene/Hydrochlorothiazid [Triamterene-Hctz 75-50 mg Tab] 1 each PO DAILY 10/27/19 metFORMIN HCL [Metformin HCl ER] 750 mg PO DAILY 10/27/19 Cephalexin Monohydrate [Keflex -] 500 mg PO TID 5 Days #15 capsule 10/29/19
[2019-10-29 20:11] VITALS: BP 128/75; PULSE 69; TEMP 98
== END 2019-10-29 17:20 | disposition home or self-care (01) | DRG 918 ==
LOC: JER → JERBED 04:26 → J5S 09:09
PROVIDERS: ADMIT Internal Medicine; ATTEND Internal Medicine
DX: T45.511A Poisoning by anticoagulants, accidental (unintentional), initial encounter (principal); M33.20 Polymyositis, organ involvement unspecified; E11.9 Type 2 diabetes mellitus without complications; E78.5 Hyperlipidemia, unspecified; I10 Essential (primary) hypertension; I48.91 Unspecified atrial fibrillation; N40.0 Benign prostatic hyperplasia without lower urinary tract symptoms; D69.6 Thrombocytopenia, unspecified; D64.9 Anemia, unspecified; R31.0 Gross hematuria
CPT/HCPCS: 36415; 74176-TC; 76856-TC; 80048; 80053; 81003; 82607; 82962; 83540; 83550; 84443; 85025; 85027; 85610; 86850; 86900; 86901; 93005; 93010; 99284-25; J7030

== ENCOUNTER 2022-01-23 20:07 | Emergency (ER) | payer OTHER ==
[2022-01-23 21:01] VITALS: BP 117/72; PULSE 64; TEMP 98; BMI 26.2
[2022-01-23 22:08] LABS: BASO % 1.6 % (0-2.0); EOS % 0.8 % (0-4.5); HEMATOCRIT 33.1 % (35.4-49); HEMOGLOBIN 11.3 GM/dL (11.7-16.9); LYMPH % 26.2 % (8-40); MCH 31.9 pg (25.7-33.7); MEAN CELL VOLUME 93.9 fl (80-96); MEAN PLT VOLUME 9.4 fl (7.5-11.1); MONO % 7.8 % (3.8-10.2); NEUT % 63.6 % (42.8-82.8); PLATELET COUNT 163 10^3/uL (134-434); RBC 3.53 M/mm3 (4.00-5.60); WHITE BLOOD COUNT 6.6 K/mm3 (4.0-10.0)
[2022-01-23 22:15] LABS: INR 1.44 (0.83-1.09); PROTHROMBIN TIME (PATIENT) 16.6 SEC (9.7-13.0)
[2022-01-23 22:18] LABS: ACTIVATED PTT 40.2 SECONDS (25.2-36.5)
[2022-01-23 22:27] LABS: CALCIUM 10.4 mg/dL (8.5-10.1)
[2022-01-23 22:29] LABS: ALBUMIN 3.5 g/dl (3.4-5.0); BLOOD UREA NITROGEN 18.3 mg/dL (7-18); MAGNESIUM 1.9 mg/dL (1.8-2.4)
[2022-01-23 22:32] LABS: CREATININE 0.9 mg/dL (0.55-1.3); TOT PROT 6.5 g/dl (6.4-8.2)
== END 2022-01-24 01:21 | disposition home or self-care (01) ==
LOC: JER 20:07
DX: R42 Dizziness and giddiness (principal)
CPT/HCPCS: 36415; 70450-TC; 71046-TC-FY; 80053; 83735; 84484; 85025; 85610; 85730; 93005; 93010; 99285-25

== ENCOUNTER 2024-07-01 22:39 | Emergency (ER) | payer OTHER ==
[2024-07-01 22:54] VITALS: BP 144/81; PULSE 70; RESP 16; TEMP 97.7; BMI 28.0
[2024-07-01] MEDS: ACETAMINOPHEN 500 MG TABLET (FP) PO ONE (23:45)
[2024-07-01] MEDS ORDERED: ACETAMINOPHEN 500 MG TABLET (FP) ONE (23:54)
== END 2024-07-02 00:51 | disposition home or self-care (01) ==
LOC: JER 22:39
DX: M25.562 Pain in left knee (principal); M25.462 Effusion, left knee; W19.XXXA Unspecified fall, initial encounter; Y93.01 Activity, walking, marching and hiking
CPT/HCPCS: 73564-TC-LT-FY; 99283-25